=== PATIENT | male | born 1965 | race Caucasian/White ===

== ENCOUNTER 2021-10-22 08:02 | Day surgery (SDC) | payer MEDICAID, OTHER ==
[~2021-10-22 08:02] MED LIST: Propofol 200 MG/20 ML SDV ONE
[2021-10-22] MEDS ORDERED: Lactated Ringers 1,000 ML IV SCH (09:00)
[2021-10-22] MEDS ORDERED: Sodium Chloride 0.9% 10 ML Syringe FLUSH PRN (09:00)
[2021-10-22] MEDS ORDERED: Propofol 200 MG/20 ML SDV ONE (09:41)
== END 2021-10-22 10:50 | disposition home or self-care (01) ==
LOC: LL.SDS 08:02
PROVIDERS: ATTEND Surgery
DX: Z12.11 Encounter for screening for malignant neoplasm of colon (principal); K64.8 Other hemorrhoids; M54.42 Lumbago with sciatica, left side; K64.4 Residual hemorrhoidal skin tags; Z86.010 Personal history of colon polyps; Z79.899 Other long term (current) drug therapy
CPT/HCPCS: J2704; J7120